=== PATIENT | male | born 1990 | race Caucasian/White ===

== ENCOUNTER 2017-05-22 15:51 | Emergency (ER) | payer SELFPAY ==
[2017-05-22] MEDS ORDERED: 0.9 % SODIUM CHLORIDE 1,000 ML IV ONE (16:15)
[2017-05-22] MEDS ORDERED: ONDANSETRON HCL/PF 4 MG/ 2ML VIAL IVP ONE (16:15)
--- NOTE | 2017-05-22 16:22 | ED Physician Documentation ---
Abdominal Pain - HPI Stated Complaint: RLQ pain Chief Complaint: Abdominal Pain Onset: days ago (2) Duration: worse Timing: worse Context: bad food (yesterday). denies: out of country travel Severity: severe Quality: pain (RLQ) Associated Symptoms: fever, nausea, vomiting. denies: chills, coffee ground emesis, bloody emesis, diarrhea, bloody stools, grossly bloody stools, mucous, sweating, loss of appetite, chest pain, back pain Further Comments: yes (27 year old male patient presents with RLQ pain. States the pain started 2 days ago. Patient states he ate a sandwich which he thought "the lunch meat was bad" yesterday. States the pain has become progressively worse and is now in the RLQ. C/O nausea, cannot keep down solids, able to keep down liquids, last BM 2 days ago. coater smoking pipe gave 2 tsp of mineral oil and a glycerin suppository this morning.) - ROS CONST: no problems GI/: constipation. denies: black stools, bloody urine, bloody stools, dark urine, problems urinating CVS/RESP: none EYES/ENT: none MS/SKIN/LYMPH: none NEURO/PSYCH: none - SOCIAL HX Smoking History: non-smoker - FAMILY HX Family History: none - PAST HX Past History: none Ischemic Bowel Risk Factors: none Other History: none Surgeries/Procedures: none Home Medications: Ambulatory Orders Medication Instructions Recorded NK [NK] 07/30/16 Allergies/Adverse Reactions: Allergies Allergy/AdvReac Type Severity Reaction Status Date / Time No Known Allergies Allergy Verified 05/22/17 16:21 - VITAL SIGNS Vital Signs: Vital Signs Temp Pulse Resp BP Pulse Ox 100.5 F H 121 H 20 133/87 97 05/22/17 15:52 05/22/17 15:52 05/22/17 15:52 05/22/17 15:52 05/22/17 15:52 - REVIEWED ASSESSMENTS Nursing Assessment Reviewed: Yes Vitals Reviewed: Yes Progress - Progress Progress: Late ate at 12:30, vomited Drank water at 1630. Patient medicated for pain with fentanyl IV and zofran for nausea. 1750 Updated patient's guardian on lab and CT results. Recommends transfer for surgical consult, Aunt prefers [facility]. 1800 Patient crying and anxious "I'm scared of surgery". HR up to 130, Medicated with ativan for anxiety. ED Results Lab/Radiology - Lab Results Lab Results: Lab Results 05/22/17 05/22/17 16:15 16:15 WBC 13.20 K/ul H K/ul (4.00-12.00) RBC 4.52 M/ul M/ul (3.90-5.20) Hgb 14.1 g/dL g/dL (12.0-18.0) Hct 40.8 % % (37.0-53.0) MCV 90.1 fl fl (80.0-100.0) MCH 31.1 pg pg (28.0-34.0) MCHC 34.5 g/dL g/dL (30.0-36.0) RDW 12.7 % % (11.3-14.3) Plt Count 185 K/mm3 K/mm3 (130-400) Seg Neutrophils % 86 % H % (39-79) Band Neutrophils % 3 % % (0-12) Lymphocytes % 5 % L % (16-50) Monocytes % 5 % % (0-11) Eosinophils % 1 % % (0-7) Plt Morphology Comment Normal (NORMAL) RBC Morph Comment Normal (NORMAL) Sodium 137 mmol/L mmol/L (137-145) Potassium 3.5 mmol/L mmol/L (3.5-5.1) Chloride 98 mmol/L mmol/L (98-107) Carbon Dioxide 28 mmol/L mmol/L (22-30) BUN 15 mg/dL mg/dL (9-20) Creatinine 1.00 mg/dL mg/dL (0.66-1.25) Estimated Creat Clear 97 Est GFR ( Amer) > 60 (60 - ) Est GFR (Non-Af Amer) > 60 (60 - ) Glucose 136 mg/dL H mg/dL (74-106) Calcium 9.1 mg/dL mg/dL (8.4-10.2) Total Bilirubin 0.3 mg/dL mg/dL (0.2-1.3) AST 23 U/L U/L (15-46) ALT 25 U/L U/L (13-69) Alkaline Phosphatase 74 U/L U/L (38-126) Total Protein 8.2 g/dL g/dL (6.3-8.2) Albumin 4.6 g/dL g/dL (3.5-5.0) - Radiology Radiology Impressions: Examination: CT Abdomen/pelvis History: Right abdominal discomfort Comparison exams: None available Technique: CT Abdomen/pelvis with IV protocol. Findings: Liver, spleen, adrenals, pancreas, kidneys and gallbladder are without gross irregularity. No abnormal enhancement. No gallstone. No suspicious renal calcifications. No abnormal dilation of the ureters. Abdominal aorta without aneurysmal dilation or peripheral described disease. Cardiac silhouette not enlarged. No pericardial effusion. Bowel unopacified limiting evaluation. No abnormal bowel dilation. Stool within the large bowel limiting sensitivity. Significant inflammatory changes around the cecum. Projecting off/adjacent to the cecum is a tubular structure with peripheral enhancement measuring 9.2 mm. Osseous structures within normal limits. Lung bases without infiltrate. no effusion. Impression: Acute appendicitis. No evidence for perforation/rupture. No abscess at this time. No abdominal mass or other inflammatory process. No gallstone. No suspicious renal calcifications or abnormal ureteric dilation. - Orders Orders: ED Orders Category Date Time Status Place IV Lock 1T Care 05/22/17 16:[address] ABD & PELVIS W/ CON Stat Exams 05/22/17 Taken CBC/PLATELET/DIFF Stat Lab 05/22/17 16:15 Completed CMP Stat Lab 05/22/17 16:15 Completed UA W/MICRO IF INDICATED Stat Lab 05/22/17 16:15 Ordered 0.9 % Sodium Chloride [Normal Saline] 1,000 ml Med 05/22/17 16:15 Discontinued IV NOW LORazepam [Ativan] Med 05/22/17 17:54 Discontinued 1 mg IVP NOW ONE LORazepam [Ativan] Med 05/22/17 17:54 Discontinued 2 mg .ROUTE .STK-MED ONE Ondansetron HCl/Pf [Zofran 4 mg/2 ml] Med 05/22/17 16:15 Discontinued 4 mg IVP NOW ONE fentaNYL CITRATE/PF [Duragesic] Med 05/22/17 16:57 Discontinued 100 mcg .ROUTE .STK-MED ONE fentaNYL CITRATE/PF [Duragesic] Med 05/22/17 16:57 Discontinued 50 mcg IVP NOW ONE fentaNYL CITRATE/PF [Duragesic] Med 05/22/17 17:42 Discontinued 50 mcg IVP NOW ONE Abdominal Pain Physical Exam - Physical Exam General Appearance: moderate distress EENT: eye inspection normal, ENT inspection normal, pharynx normal, no signs of dehydration, LEIDY, no nystagmus, TM's nml RESPIRATORY: no resp distress, chest non-tender, breath sounds normal CVS: reg rate & rhythm, heart sounds normal, equal pulses, no murmur, no gallop , PMI nml, no JVD, no friction rub, 24 ABDOMEN: tenderness (RLQ), McBurney's point tenderne, rebound SKIN: normal color, warm/dry, NR, INT, PAL, DR EXTREMITIES: non-tender, normal range of motion, no evidence of injury, no edema , J, SAFETY DIRECTOR NEURO: oriented X3, CN's nml as tested, motor nml, sensation nml Vital Signs: Vital Signs Temp Pulse Resp BP Pulse Ox 100.5 F H 121 H 20 133/87 97 05/22/17 15:52 05/22/17 15:52 05/22/17 15:52 05/22/17 15:52 05/22/17 15:52 Discharge Clincal Impression: Acute appendicitis Qualifiers: Acute appendicitis type: with localized peritonitis Qualified Code(s): K35.3 - Acute appendicitis with localized peritonitis Condition: Stable Disposition: 02 XFER SHT-TRM HOSP Decision to Admit: NO Decision Time: 17:56
[2017-05-22 16:25] LABS: MEAN CORPUSCULAR HEMOGLOBIN 31.1 pg (28.0-34.0); MEAN CORPUSCULAR VOLUME 90.1 fl (80.0-100.0)
[2017-05-22 16:33] LABS: eGFR (African) > 60; eGFR (Non-African) > 60
[2017-05-22 16:52] LABS: MONOCYTES % 5 % (0-11); SEGMENTED NEUTROPHILS % 86 % (39-79)
[2017-05-22 16:53] LABS: EOSINOPHILS % 1 % (0-7)
[2017-05-22] MEDS ORDERED: fentaNYL CITRATE/PF 100 MCG/ 2ML AMP IVP ONE ×2 (16:57→17:42)
[2017-05-22] MEDS ORDERED: fentaNYL CITRATE/PF 100 MCG/ 2ML AMP ONE (16:57)
[2017-05-22] MEDS ORDERED: LORazepam 2 MG/ML VIAL IVP ONE (17:54)
[2017-05-22] MEDS ORDERED: LORazepam 2 MG/ML VIAL ONE (17:54)
--- NOTE | 2017-05-22 18:08 | Diagnostic Imaging Report ---
MARLEY MOBLEY (ROSLYN) - ER [facility] [id number] [facility].[address] [address] Report Submission Date: May 22, 2017 5:40:48 PM CDT Patient Study Name: MALCOM DEL ANGEL Date: May 22, 2017 5:13:14 PM CDT Modality Type: CT\SR Gender: M Description: CT ABD & PELVIS W/ CON : 89 Institution: [facility] Physician: MARLEY MOBLEY (ROSLYN) - ER Examination: CT Abdomen/pelvis History: Right abdominal discomfort Comparison exams: None available Technique: CT Abdomen/pelvis with IV protocol. Findings: Liver, spleen, adrenals, pancreas, kidneys and gallbladder are without gross irregularity. No abnormal enhancement. No gallstone. No suspicious renal calcifications. No abnormal dilation of the ureters. Abdominal aorta without aneurysmal dilation or peripheral described disease. Cardiac silhouette not enlarged. No pericardial effusion. Bowel unopacified limiting evaluation. No abnormal bowel dilation. Stool within the large bowel limiting sensitivity. Significant inflammatory changes around the cecum. Projecting off/adjacent to the cecum is a tubular structure with peripheral enhancement measuring 9.2 mm. Osseous structures within normal limits. Lung bases without infiltrate. no effusion. Impression: Acute appendicitis. No evidence for perforation/rupture. No abscess at this time. No abdominal mass or other inflammatory process. No gallstone. No suspicious renal calcifications or abnormal ureteric dilation. Electronically signed on May 22, 2017 5:40:48 PM CDT by: Erwin CONNOLLY
[2017-05-22 18:14] VITALS: BP 128/87
== END 2017-05-22 18:30 | disposition short-term general hospital (02) ==
LOC: ED 15:51
DX: K35.3 Acute appendicitis with localized peritonitis (principal)
CPT/HCPCS: 74177; 80053; 85025; J2060; J2405; J3010; J7030; Q9966; 96361; 96374; 96375; 96376; 99284; S1016